=== PATIENT | female | born 1975 | race Caucasian/White ===

== ENCOUNTER 2016-05-12 10:30 | Emergency (ER) | payer BC ==
[2016-05-12 11:50] VITALS: BP 124/79
--- NOTE | 2016-05-12 12:12 | UC ---
Respiratory Complaint HPI - HPI Summary HPI Summary: 40 yo female with sinus pressure and pain x weeks nasal congestion post nasal drip cough no f/c - History of Current Complaint Chief Complaint: UCRespiratory Stated Complaint: SORE THROAT,CONGESTION,COUGH Time Seen by Provider: 05/12/16 12:06 Hx Obtained From: Patient Hx Last Menstrual Period: 05/08/16 Onset/Duration: Gradual Onset, Lasting Weeks Timing: Constant Severity Initially: Mild Severity Currently: Moderate Pain Intensity: 4 Pain Scale Used: 0-10 Numeric Character: Cough: Nonproductive Aggravating Factors: Nothing Alleviating Factors: Nothing Associated Signs And Symptoms: Positive: Nasal Congestion, Sinus Discomfort - Allergies/Home Medications Allergies/Adverse Reactions: Allergies Allergy/AdvReac Type Severity Reaction Status Date / Time Lactone Allergy Intermediate Diarrhea Verified 05/12/16 11:44 Clarithromycin Allergy Mild Rash Verified 05/12/16 11:44 Penicillins Allergy Unknown Unknown Verified 05/12/16 11:44 Reaction Details Home Medications: Home Medications Cetirizine* [ZyrTEC*] 10 mg PO DAILY 05/12/16 [History Confirmed 05/12/16] PMH/Surg Hx/FS Hx/Imm Hx Previously Healthy: Yes Respiratory History Of: Reports: Pneumonia - Surgical History Surgical History: None - Family History Known Family History: Positive: Cardiac Disease, Hypertension - Social History Alcohol Use: Weekly Substance Use Type: None Smoking Status (MU): Never Smoked Tobacco Have You Smoked in the Last Year: No Review of Systems Constitutional: Negative Skin: Negative Eyes: Negative ENT: Nasal Discharge Respiratory: Cough Cardiovascular: Negative Gastrointestinal: Negative Genitourinary: Negative Motor: Negative Neurovascular: Negative Musculoskeletal: Negative Neurological: Negative Psychological: Negative All Other Systems Reviewed And Are Negative: Yes Physical Exam Triage Information Reviewed: Yes Appearance: Well-Appearing, No Pain Distress, Well-Nourished Vital Signs: Initial Vital Signs Temp 98.7 F 05/12/16 11:45 Pulse 83 05/12/16 11:45 Resp 16 05/12/16 11:45 BP 124/79 05/12/16 11:45 Pulse Ox 99 05/12/16 11:45 Vital Signs Reviewed: Yes Eyes: Positive: Conjunctiva Clear ENT: Positive: Hearing grossly normal, Nasal congestion, Nasal drainage, Other: - bilateral max sinus tenderness. Negative: TMs normal, TM bulging, TM dull, TM red, Tonsillar swelling, Tonsillar exudate, Trismus, Muffled/hoarse voice Dental: Negative: Gross Decay/Caries @, Dental Fracture @, Abscess @ Neck: Positive: Supple, Nontender Respiratory: Positive: Lungs clear, Normal breath sounds, No respiratory distress, No accessory muscle use Cardiovascular: Positive: RRR, No Murmur. Negative: Tachycardia, Bradycardia Musculoskeletal: Positive: ROM Intact, No Edema Neurological: Positive: Alert, Muscle Tone Normal Psychological Exam: Normal Skin Exam: Normal UC Diagnostic Evaluation - Laboratory O2 Sat by Pulse Oximetry: 99 - normal/not hypoxic Respiratory Course/Dx - Differential Dx/Diagnosis Provider Diagnoses: acute sinusitis Discharge - Discharge Plan Condition: Stable Disposition: HOME Prescriptions: Cefuroxime Axetil [Ceftin 250 MG] 250 mg PO BID #20 tab Patient Education Materials: Sinusitis (ED) Referrals: Ping Schaffer NP [Primary Care Provider] - 5 Days (recheck next week if not better) Additional Instructions: saline nasal spray twice daily
== END 2016-05-12 12:19 | disposition home or self-care (01) ==
LOC: UCCORT 10:30
DX: J01.90 Acute sinusitis, unspecified (principal); Z88.1 Allergy status to other antibiotic agents; Z88.0 Allergy status to penicillin
CPT/HCPCS: 99212; G0463

== ENCOUNTER 2019-03-15 08:08 | Emergency (ER) | payer BC ==
[2019-03-15 08:24] VITALS: BP 124/78
--- NOTE | 2019-03-15 09:13 | UC ---
Respiratory Complaint HPI - HPI Summary HPI Summary: ABOUT A WEEK AND A HALF AGO DEVELOPED SORE THROAT AND RUNNY NOSE WHICH HAS SINCE IMPROVED. PATIENT NOW HAS COUGH AND BILATERAL EAR PAIN. NO FEVER, SHORTNESS OF BREATH, NAUSEA/VOMITING. - History of Current Complaint Chief Complaint: UCGeneralIllness Stated Complaint: RESPIRATORY Time Seen by Provider: 03/15/19 08:38 Hx Obtained From: Patient Hx Last Menstrual Period: 3 weeks ago Onset/Duration: Gradual Onset, Lasting Days, Still Present Timing: Constant Severity Initially: Moderate Severity Currently: Moderate Pain Intensity: 4 Pain Scale Used: 0-10 Numeric Character: Cough: Nonproductive Aggravating Factors: Nothing Alleviating Factors: Nothing Associated Signs And Symptoms: Positive: URI, Nasal Congestion. Negative: Dyspnea, Fever, Wheezing - Allergies/Home Medications Allergies/Adverse Reactions: Allergies Allergy/AdvReac Type Severity Reaction Status Date / Time clarithromycin Allergy Rash Verified 03/15/19 08:24 Penicillins Allergy unk Verified 03/15/19 08:24 lactone Allergy diarhea Uncoded 03/15/19 08:24 Home Medications: Home Medications Multivitamin [Multivitamins] 1 cap PO DAILY 03/15/19 [History Confirmed 03/15/19 ] PMH/Surg Hx/FS Hx/Imm Hx GI/ History: Gastroesophageal Reflux - Surgical History Surgical History: None - Family History Known Family History: Positive: Cardiac Disease, Hypertension - Social History Alcohol Use: Weekly Substance Use Type: None Smoking Status (MU): Never Smoked Tobacco Have You Smoked in the Last Year: No Review of Systems All Other Systems Reviewed And Are Negative: Yes Constitutional: Positive: Negative ENT: Positive: Sore Throat, Ear Ache, Nasal Discharge Respiratory: Positive: Cough Cardiovascular: Positive: Negative Gastrointestinal: Positive: Negative Physical Exam Triage Information Reviewed: Yes Appearance: Well-Appearing, No Pain Distress, Well-Nourished Vital Signs: Initial Vital Signs Temp 98.8 F 03/15/19 08:19 Pulse 66 03/15/19 08:19 Resp 16 03/15/19 08:19 BP 124/78 03/15/19 08:19 Pulse Ox 100 03/15/19 08:19 Vital Signs Reviewed: Yes Eyes: Positive: Conjunctiva Clear ENT: Positive: Hearing grossly normal, Pharynx normal, TMs normal Neck: Positive: Supple, Nontender, No Lymphadenopathy Respiratory Exam: Normal Cardiovascular Exam: Normal Abdomen Description: Positive: Soft Musculoskeletal: Positive: No Edema Neurological: Positive: Alert Psychological: Positive: Age Appropriate Behavior Skin: Negative: Rashes Respiratory Course/Dx - Course Course Of Treatment: NO EAR INFECTION ON EXAM TODAY. NO EVIDENCE OF STREP THROAT. LUNGS CLEAR. LIKELY VIRALLY MEDIATED SYMPTOMS WHICH SHOULD RESOLVE ON THEIR OWN WITH TIME. RECOMMENDED CONSERVATIVE MANAGEMENT WITH REST, HYDRATION, OTC MEDICATIONS NEEDED. - Differential Dx/Diagnosis Provider Diagnosis: Upper respiratory infection Discharge ED - Sign-Out/Discharge Documenting (check all that apply): Patient Departure All imaging exams completed and their final reports reviewed: No Studies - Discharge Plan Condition: Stable Disposition: HOME Patient Education Materials: Upper Respiratory Infection (ED) Referrals: Ping Schaffer NP [Primary Care Provider] - If Needed Additional Instructions: NORMAL EXAM TODAY. NO EVIDENCE OF EAR INFECTION OR STREP THROAT. LUNGS CLEAR. YOUR SYMPTOMS ARE LIKELY VIRALLY MEDIATED AND SHOULD RESOLVE ON THEIR OWN WITH TIME. NO INDICATION FOR ANTIBIOTICS AT PRESENT. REST, HYDRATE, OTC MEDS NEEDED. SEEK FOLLOW-UP IF YOU ARE NOT IMPROVING OVER THE NEXT 1-2 WEEKS. - Billing Disposition and Condition Condition: STABLE Disposition: Home
== END 2019-03-15 09:08 | disposition home or self-care (01) ==
LOC: UCEAST 08:08
DX: J06.9 Acute upper respiratory infection, unspecified (principal); H92.03 Otalgia, bilateral; Z88.0 Allergy status to penicillin; Z91.09 Other allergy status, other than to drugs and biological substances; Z88.1 Allergy status to other antibiotic agents
CPT/HCPCS: 99211; G0463